=== PATIENT | female | born 1985 | race Caucasian/White ===

== ENCOUNTER 2017-07-08 05:46 | Emergency (ER) | payer OTHER ==
[2017-07-08 06:27] LABS: Bilirubin Negative (Negative); Blood, Urine Moderate (Negative); Glucose, Urine (Dipstick) Negative (Negative); Ketone, Urine Negative (Negative); Nitrite Negative (Negative); Protein, Urine (Dipstick) Negative (Neg-Trace); RBC/HPF 0-3 HPF (0-3); Squamous Epithelial 0-3 HPF (0-3); Urobilinogen 0.2 mg/dL (0.2-1.0); WBC/HPF 0-3 HPF (0-3)
[2017-07-08 06:28] LABS: Bacteria/HPF Rare-Few HPF (None Seen); Hyaline Casts/LPF NONE SEEN LPF (0-3 Hyaline)
[2017-07-08 06:34] LABS: Hematocrit 40.9 % (36.0-47.0); Red Blood Cell (RBC) Count 4.47 mill/uL (4.20-5.40); White Blood Cell (WBC) Count 6.3 thou/uL (4.8-10.8)
[2017-07-08 06:35] LABS: Mean Platelet Volume 7.6 fL (7.4-10.4)
[2017-07-08 07:00] LABS: Band 3 % (5-11); Neutrophil 45 % (42-75); Reactive Lymphocytes 4 % (0-10)
--- NOTE | 2017-07-08 10:21 | ULT ---
OB ULTRASOUND: Date: `07/08/17 HISTORY: Pelvic pain. Positive . FINDINGS: There is a fluid collection seen within the endometrial canal with evidence of a pole, most com patible with intrauterine gestation. [place]-rump length measures 2.4 cm, which would be consistent wit h gestational age of 9 weeks and 1 day. However, cardiac Doppler does not detect heart tones, a nd heart tones should be detected at this time. The gestational sac also appears large in size with respect to the size of the pole. No yolk sac is visualized. The uterus measures 9.3 cm x 6.3 cm x 7.9 cm. Right ovary is not visualized. The left ovary has a normal sonographic appearance and measures 3.1 c m x 1.8 cm x 2.8 cm. Doppler evaluation of the left ovary with spectral analysis and color flow evalu ation does demonstrate arterial flow. No free fluid is seen in the cul-de-sac. IMPRESSION: Evidence of intrauterine gestation, but no heart tones are detected suggesting demise. Th e size of the gestational sac also appears out of proportion to size of the pole. Above findings discussed with ordering physician in the emergency department on 07/08/17 at 0853 hour s. CODE CR. POS: [facility]
== END 2017-07-08 09:34 | disposition home or self-care (01) ==
LOC: SCSER 05:46
DX: O03.9 Complete or unspecified spontaneous abortion without complication (principal); O99.511 Diseases of the respiratory system complicating pregnancy, first trimester; Z3A.12 12 weeks gestation of pregnancy; Z79.899 Other long term (current) drug therapy
CPT/HCPCS: 76856; 81003; 81015; 84702; 85025; 86900; 86901

== ENCOUNTER 2017-07-09 07:15 | Day surgery (SDC) | payer OTHER ==
[2017-07-09 07:52] LABS: #Eosinphils 0.2 thou/uL (0.0-0.7); #Lymphocytes 1.9 thou/uL (1.20-3.40); #Monocytes 0.5 thou/uL (0.11-0.59); #Neutrophils 4.3 thou/uL (1.40-6.50); %Eosinophils 2.3 % (0.0-10.0); %Lymphocytes 27.8 % (21.0-51.0); %Monocytes 7.4 % (0.0-10.0); Hematocrit 38.7 % (36.0-47.0); Mean Platelet Volume 7.5 fL (7.4-10.4); Red Blood Cell (RBC) Count 4.07 mill/uL (4.20-5.40); White Blood Cell (WBC) Count 6.9 thou/uL (4.8-10.8)
--- NOTE | 2017-07-09 09:31 | HP ---
REASON FOR ADMISSION: Incomplete AB at 8 weeks gestation. HISTORY OF PRESENT ILLNESS: Ms. Valdes is a 32-year-old 2, para 1, approximately 8 weeks gest ation who is a patient of Dr. Beba Mason. She presented to the [place] [facility] on the with bleeding, was noted to have absent FHTs and a beta of 6500. She was given Cytotec per ACOG vasyl mmendations. She has had some bleeding overnight that has not stopped. She may have passed some tis juarez. She was seen in the emergency room this morning and was noted to have a near syncopal episode s econdary to her bleeding. 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 PAST MEDICAL HISTORY: Asthma. PAST SURGICAL HISTORY: None. ALLERGIES: Denies. MEDICATIONS: vitamins and albuterol inhaler. SOCIAL HISTORY: Denies tobacco, alcohol, or drug use. FAMILY HISTORY/REVIEW OF SYSTEMS: Noncontributory. PHYSICAL EXAMINATION: Somewhat pale white female. VITAL SIGNS: Pulse of 103, blood pressure of 100/60, temperature 98.6, respirations 18. HEENT: Within normal limits. LUNGS: Clear to auscultation bilaterally. HEART: Regular rhythm. ABDOMEN: Soft, nontender, no rebound or guarding. PELVIC: Vulva without lesions. Vagina, moderate blood noted, clot in the introitus. Speculum exam deferred. EXTREMITIES: Without clubbing, cyanosis or edema. LABORATORY STUDIES: Hematocrit is 38.7%, yesterday it was 40.9%, platelet count is within normal gregory its. White count is within normal limits. Beta hCG has decreased from 6500 to 3600. Ultrasound pedro wed an intrauterine gestation with a 2.4 cm pole yesterday with absence of FHTs. IMPRESSION: Incomplete with moderate to heavy vaginal bleeding, status post Cytotec for mis sed . PLAN: We will take the patient to the operating room and perform suction and sharp D&C.
[2017-07-09] MEDS ORDERED: Fentanyl 100 MCG/2 ML VIAL ONE (09:42)
[2017-07-09] MEDS ORDERED: CEFAZOLIN/Water 2 GM/20 ML SYRINGE ONE (09:51)
[2017-07-09] MEDS ORDERED: Midazolam HCl 2 mg/2 ml Vial ONE (09:52)
--- NOTE | 2017-07-09 10:37 | PDISCHARGE ---
Discharge - Disposition Disposition: HOME - Patient Instructions - Referrals and PCP Follow-Up Referrals and PCP Follow-Up: Beba Velasquez MD [Primary Care Provider] - 07/28/17 - Activity Instructions Activity:: Activity as Tolerated - Nourishment Instructions Nourishment:: No Restrictions - Therapy Instructions Therapies:: Not Applicable - Equipment/Supply Instructions Equipment/Supplies:: Not Applicable - IV Therapy Instructions IV Therapy:: Not Applicable
--- NOTE | 2017-07-09 15:09 | OP ---
DATE OF PROCEDURE: 07/09/2017 PREOPERATIVE DIAGNOSIS: Incomplete , 8 weeks. POSTOPERATIVE DIAGNOSIS: Incomplete , 8 weeks. PROCEDURE: Suction and sharp D&C SURGEON: Waylon Torres M.D. ANESTHESIA: General endotracheal, Abad Bradford M.D. ESTIMATED BLOOD LOSS: 50 mL intraoperatively. MEDICATIONS: Two grams Ancef preincision. DVT PROPHYLAXIS: SCDs. OPERATIVE FINDINGS: 1. Pre and post-sound 10 cm ovary. 2. Products of conception. 3. Hemostasis of the procedure and correct count. DISPOSITION: To the recovery room in good condition. DESCRIPTION OF OPERATIVE PROCEDURE: The patient was taken to the operating room where anesthesia was achieved without difficulty. She was prepped and draped in dorsal lithotomy and candy canes. Side- hinged speculum was placed in the vagina and cervix was identified and a large amount of clot was not ed in the vagina. This was removed. Upon visualization of the cervix, there was a large amount of t issue in the cervical os that was dilated up to almost 2 cm and this was grasped a ring forceps remov ed and sent with the rest of the pathologic specimen. The cervix was grabbed at 12 o'clock and sound ed to 10 cm, 9 mm curette, curved, max vacuum 40 mmHg was introduced in the uterine cavity and produc ts of conception was noted. With cessation of flow of products of conception, the suction curette wa s removed. Sharp curretage was carried out and then repeat suction curet revealed no further tissue and bleeding had ceased. Post-sound was 10 cm. Tenaculum removed. Side hand speculum removed. Pat ient awakened, extubated, and taken to recovery room in good condition. Rh, patient's blood type is O positive, so no RhoGAM is necessary. The patient will be discharged home from day stay unit with heather doran up by Dr. Velasquez in 2-4 weeks.
== END 2017-07-09 12:30 ==
LOC: ERS 07:15 → SDC/OP 09:27
PROVIDERS: ATTEND Obstetrics & Gynecology
PROC: 10D17ZZ Extraction of Products of Conception, Retained, Via Natural or Artificial Opening (ICD-10-PCS; principal; 2017-07-09)
DX: O03.4 Incomplete spontaneous abortion without complication (principal); J45.909 Unspecified asthma, uncomplicated; Z79.899 Other long term (current) drug therapy
CPT/HCPCS: 36415; 84702; 85025; 86900; 86901; 96360; J2250; J3010

== ENCOUNTER 2018-02-10 07:33 | Emergency (ER) | payer BC, OTHER ==
[2018-02-10 07:58] LABS: #Basophils 0.1 thou/uL (0.0-0.2); #Eosinphils 0.2 thou/uL (0.0-0.7); #Lymphocytes 1.4 thou/uL (1.20-3.40); #Monocytes 0.4 thou/uL (0.11-0.59); #Neutrophils 4.6 thou/uL (1.40-6.50); %Basophils 0.9 % (0.0-1.0); %Eosinophils 3.2 % (0.0-10.0); %Lymphocytes 21.2 % (21.0-51.0); %Monocytes 6.6 % (0.0-10.0); %Neutrophils 68.2 % (42.0-75.0); Hemoglobin 13.8 g/dL (12.0-16.0); Mean Corpuscular HGB CONC 33.7 g/dL (32.0-36.0); Mean Corpuscular Hemoglobin 31.7 pg (27.0-31.0); Mean Platelet Volume 8.1 fL (7.4-10.4); Platelet Count 173 thou/uL (130-400); RBC Distribution Width 11.1 % (11.5-14.5); Red Blood Cell (RBC) Count 4.36 mill/uL (4.20-5.40); White Blood Cell (WBC) Count 6.7 thou/uL (4.8-10.8)
[2018-02-10 08:11] LABS: ALT (SGPT) 9 U/L (8-55); AST (SGOT) 17 U/L (5-34); Albumin 4.6 g/dL (3.5-5.0); Alkaline Phosphatase 78 U/L (40-150); Anion Gap 9 mmol/L (10-20); BUN (Urea Nitrogen) 10 mg/dL (7.0-18.7); Bilirubin, Total 0.3 mg/dL (0.2-1.2); Calc. Creatinine Clearance 0 mL/min (70-130); Calcium 9.6 mg/dL (7.8-10.44); Carbon Dioxide 29 mmol/L (22-29); Chloride 104 mmol/L (98-107); Estimated GFR-MDRD 87; Globulin 3.5 g/dL (2.4-3.5); Glucose 104 mg/dL (70-105); Lipase 14 U/L (8-78); Protein, Total 8.1 g/dL (6.0-8.3); Sodium 138 mmol/L (136-145)
[2018-02-10 08:35] LABS: Bilirubin Negative (Negative); Blood, Urine Negative (Negative); Clarity CLEAR (Clear); Glucose, Urine (Dipstick) Negative (Negative); Leukocyte Negative (Negative); Nitrite Negative (Negative); Protein, Urine (Dipstick) Negative (Neg-Trace); Specific Gravity, Urine 1.009 (1.002-1.036); Urobilinogen 0.2 mg/dL (0.2-1.0); pH, Urine 7.5 (5.0-9.0)
[2018-02-10 08:47] LABS: Pregnancy Test - Urine (BHCG) Negative (Negative)
[2018-02-10 08:48] LABS: Pregu Control Background? CLEAR/WHITE (CLR/WHITE); Pregu Control Bar Appear? YES (CONTROL BAR)
[2018-02-10 08:49] LABS: Specific Gravity 1.009 (1.002-1.036)
[2018-02-10] MEDS ORDERED: ISOVUE-370 76%-LOCM 1 ML ONE (09:40)
[2018-02-10] MEDS ORDERED: Iopamidol 370 76% 50 ML VIAL FS ONE (09:40)
--- NOTE | 2018-02-10 10:50 | CT ---
CT OF THE ABDOMEN AND PELVIS WITH CONTRAST: Date: 02/10/18 COMPARISON: None. HISTORY: Abdominal pain after a fall that occurred this morning while walking to the bathroom. TECHNIQUE: Multiple contiguous axial images were obtained in a CT of the abdomen and pelvis with contrast. PO co ntrast was administered. Coronal reformats were performed. FINDINGS: The liver, gallbladder, kidneys, adrenal glands, spleen, and pancreas are unremarkable. No free air o r stranding changes are seen in the abdomen or pelvis. A small amount of free fluid in the pelvis may be physiologic. The reproductive organs are unremarkable. A dominant follicle is seen in the right o vary measuring 2.3 cm in greatest dimension. The large and small bowel are unremarkable. The appendix is normal. No abdominal or pelvic lymphadeno christian are seen. The osseous structures, visualized inferior thorax, and abdominal wall soft tissues are unremarkable. IMPRESSION: No evidence of acute intra-abdominal/pelvic abnormality. POS: NOEL
== END 2018-02-10 11:28 | disposition home or self-care (01) ==
LOC: ERS 07:33
DX: N83.201 Unspecified ovarian cyst, right side (principal); J45.909 Unspecified asthma, uncomplicated; Z79.899 Other long term (current) drug therapy
CPT/HCPCS: 36415; 74177; 80053; 81003; 81025; 83690; 85025; 96360

== ENCOUNTER 2018-07-04 10:23 | Day surgery (SDC) | payer BC ==
[2018-07-01 14:18] VITALS: BMI 28.2
--- NOTE | 2018-07-04 10:11 | HP ---
DATE OF PROCEDURE: 07/04/2018 HISTORY OF PRESENT ILLNESS: Ms. Valdes is a 33-year-old white female A1, who has a confirmation of a 6-7 week embryonic demise. She had initial ultrasound evaluation on 06/28/2018 for new OB visi t which showed her to be size less than dates with a crown rump length of 0.33 cm. There was no card iac activity noted. She had subsequent follow up ultrasound today showing again no cardiac activity and no growth, confirming a missed . She has no current vaginal bleeding. She was aware of the possibility of early loss and she has had a previous miscarriage approximately a year ago where s he received Cytotec and then required a post-Cytotec D&C and she prefers a suction D&C due to this hi story. PAST MEDICAL HISTORY: Asthma. PAST SURGICAL HISTORY: Suction D&C. FAMILY HISTORY: Myocardial infarction in her father and multiple myeloma in her father. SOCIAL HISTORY: She is a nonsmoker. No excessive alcohol use. PERTINENT LABORATORY: Her blood type is O positive. PHYSICAL EXAMINATION: VITAL SIGNS: Her weight 179 pounds, blood pressure 130/80, heart rate 80 and regular. HEENT: Within normal limits. CHEST: Clear to auscultation. HEART: Regular rate and rhythm. S1, S2 heart sounds, no murmurs, rubs or gallops. ABDOMEN: Soft, nontender, nondistended with no palpable masses. PELVIC: Vulva and vagina had no lesions. Cervix had no lesions. Cervical os is closed. Uterus is 6-8 weeks size. Adnexa nontender with no masses. ASSESSMENT: A 33-year-old A1 with 6-7 week early loss, Rh positive blood type. PLAN: Suction D&C today.
[2018-07-04] MEDS ORDERED: CEFAZOLIN 2 GM/50 ML BAG ONE (11:36)
[2018-07-04] MEDS ORDERED: Fentanyl 100 MCG/2 ML VIAL ONE (12:16)
[2018-07-04] MEDS ORDERED: Midazolam HCl 2 mg/2 ml Vial ONE (12:16)
[2018-07-04 13:45] LABS: #Eosinphils 0.1 thou/uL (0.0-0.7); #Lymphocytes 2.3 thou/uL (1.20-3.40); #Monocytes 0.5 thou/uL (0.11-0.59); #Neutrophils 4.7 thou/uL (1.40-6.50); %Basophils 0.5 % (0.0-1.0); %Eosinophils 1.5 % (0.0-10.0); %Lymphocytes 29.8 % (21.0-51.0); %Monocytes 6.7 % (0.0-10.0); %Neutrophils 61.6 % (42.0-75.0); Hemoglobin 12.9 g/dL (12.0-16.0); Mean Corpuscular HGB CONC 32.7 g/dL (32.0-36.0); Mean Corpuscular Hemoglobin 30.8 pg (27.0-31.0); Mean Corpuscular Volume 94.3 fL (78.0-98.0); Mean Platelet Volume 8.3 fL (7.4-10.4); Platelet Count 207 thou/uL (130-400); RBC Distribution Width 11.1 % (11.5-14.5); Red Blood Cell (RBC) Count 4.19 mill/uL (4.20-5.40); White Blood Cell (WBC) Count 7.6 thou/uL (4.8-10.8)
--- NOTE | 2018-07-04 13:50 | OP ---
DATE OF PROCEDURE: 07/04/2018 PREOPERATIVE DIAGNOSES: 1. A 33-year-old white female, A1 with 6-7 weeks embryonic demise. 2. Blood type O positive. POSTOPERATIVE DIAGNOSES: 1. A 33-year-old white female, A1 with 6-7 weeks embryonic demise. 2. Blood type O positive. PROCEDURE PERFORMED: Suction D&C. SURGEON: Beba Velasquez M.D. ANESTHESIA: General. ESTIMATED BLOOD LOSS: 100 mL. COMPLICATIONS: None. COUNTS: Correct x2. 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 PATHOLOGY: Products of conception. FINDINGS: 1. Uterus was approximately 8 weeks size with the sound to 10 cm. 2. Products removed consistent with products of conception. COMPLICATIONS: None. DISPOSITION: Recovery room and then plan for discharge home from day stay. DESCRIPTION OF OPERATIVE PROCEDURE: The patient previously received informed consent in regards to angela moore. She was taken back to the operating room where she received a general anesthetic agent witho ut complications. She was placed in dorsal lithotomy position with use of Christian stirrups and prepped and draped in usual sterile fashion. In and out catheterization of bladder was performed. At this time, an exam under anesthesia was performed noting the uterus to be 8 weeks size, anteverted in posi tion. The anterior lip of cervix was then grasped with a single-tooth tenaculum. The uterus sounded to 10 cm. Serial dilatation of the cervix was carried out to a size 18 Hanks dilator. This allowed for an 8 mm curet to fit easily through the cervical os into the endometrial cavity. The endometria l cavity was then suctioned with the D&C suction device at approximately 15-16 mm of pressure. Once felt the majority of the contents had been evacuated, sharp curettage again was then scraped through the contents of the uterine cavity, removing the remainder of the products of conception. The cavity again was resuctioned until no residual tissue was noted to be removed. There was no active bleedin g noted from the cervical os supracervically. Tenaculum was removed. Pressure was applied to the te naculum sites with a sponge stick. Hemostasis was achieved. The patient was then awakened from anes thesia and transferred to the recovery room in stable condition.
[2018-07-04] MEDS ORDERED: Ondansetron PF 4 MG/2 ML Vial ONE (13:56)
[2018-07-04] MEDS ORDERED: PROPOFOL 200 MG/20 ML VIAL ONE (13:56)
[2018-07-04] MEDS ORDERED: Lidocaine 1% PF 5 ML VIAL ONE (13:56)
[2018-07-04] MEDS ORDERED: Dexamethasone 20 MG/5 ML VIAL ONE (13:56)
== END 2018-07-04 15:09 | disposition home or self-care (01) ==
LOC: SDC 10:23
PROVIDERS: ATTEND Obstetrics & Gynecology
PROC: 10D17Z9 Manual Extraction of Products of Conception, Retained, Via Natural or Artificial Opening (ICD-10-PCS; principal; 2018-07-04)
DX: O02.1 Missed abortion (principal); J45.909 Unspecified asthma, uncomplicated; Z79.899 Other long term (current) drug therapy
CPT/HCPCS: 85025; 86850; 86900; 86901; 88305; J1100; J2001; J2250; J2405; J2704; J3010

== ENCOUNTER 2018-09-26 18:32 | Emergency (ER) | payer BC ==
--- NOTE | 2018-09-26 19:38 | RAD ---
PORTABLE CHEST ONE VIEW: HISTORY: Chest pain. FINDINGS: heart size and mediastinum are within normal limits. Lungs appear clear of infiltrates. Scoliotic c hange of the spine is noted. IMPRESSION: No active intrathoracic disease. POS: [facility]
[2018-09-26 19:41] LABS: #Eosinphils 0.3 thou/uL (0.0-0.7); #Lymphocytes 2.4 thou/uL (1.20-3.40); #Monocytes 0.5 thou/uL (0.11-0.59); #Neutrophils 3.3 thou/uL (1.40-6.50); %Basophils 0.4 % (0.0-1.0); %Eosinophils 5.2 % (0.0-10.0); %Lymphocytes 36.4 % (21.0-51.0); %Monocytes 7.3 % (0.0-10.0); %Neutrophils 50.6 % (42.0-75.0); Hemoglobin 12.6 g/dL (12.0-16.0); Mean Corpuscular HGB CONC 33.3 g/dL (32.0-36.0); Mean Corpuscular Hemoglobin 32.2 pg (27.0-31.0); Mean Corpuscular Volume 96.6 fL (78.0-98.0); Mean Platelet Volume 7.4 fL (7.4-10.4); Platelet Count 188 thou/uL (130-400); RBC Distribution Width 10.9 % (11.5-14.5); Red Blood Cell (RBC) Count 3.91 mill/uL (4.20-5.40); White Blood Cell (WBC) Count 6.6 thou/uL (4.8-10.8)
[2018-09-26 20:25] LABS: ALT (SGPT) 12 U/L (8-55); AST (SGOT) 19 U/L (5-34); Albumin 4.2 g/dL (3.5-5.0); Alkaline Phosphatase 61 U/L (40-150); Anion Gap 10 mmol/L (10-20); BUN (Urea Nitrogen) 13 mg/dL (7.0-18.7); Bilirubin, Total 0.4 mg/dL (0.2-1.2); CK (CPK) 77 U/L (29-168); Calc. Creatinine Clearance 0 mL/min (70-130); Calcium 9.3 mg/dL (7.8-10.44); Carbon Dioxide 25 mmol/L (22-29); Chloride 106 mmol/L (98-107); Estimated GFR-MDRD 83; Globulin 2.8 g/dL (2.4-3.5); Glucose 89 mg/dL (70-105); Potassium 4.3 mmol/L (3.5-5.1); Sodium 137 mmol/L (136-145)
[2018-09-26 20:36] LABS: Lipase 18 U/L (8-78)
== END 2018-09-26 21:24 | disposition home or self-care (01) ==
LOC: ERS 18:32
DX: F41.9 Anxiety disorder, unspecified (principal); J45.909 Unspecified asthma, uncomplicated
CPT/HCPCS: 36415; 71045; 80053; 82550; 83690; 84484; 85025; 93005

== ENCOUNTER 2018-10-06 08:05 | Emergency (ER) | payer BC ==
[2018-10-06] MEDS ORDERED: Mag-Al Plus 1200 MG/1200 MG/120 MG/30 ML UDCUP ONE (08:36)
[2018-10-06] MEDS ORDERED: Famotidine 20 MG TAB ONE (08:36)
[2018-10-06] MEDS ORDERED: Lidocaine Viscous Sol 2% 15 ml UD Cup ONE (08:36)
[2018-10-06 08:46] LABS: Bilirubin Negative (Negative); Blood, Urine Trace (Negative); Clarity Clear (Clear); Glucose, Urine (Dipstick) Negative (Negative); Leukocyte Negative (Negative); Nitrite Negative (Negative); Protein, Urine (Dipstick) Negative (Neg-Trace); Specific Gravity, Urine 1.015 (1.005-1.030); Urobilinogen 0.2 mg/dL (0.2-1.0)
[2018-10-06 08:48] LABS: Bacteria/HPF Rare-Few HPF (None Seen); RBC/HPF 0-3 HPF (0-3); WBC/HPF 0-3 HPF (0-3)
[2018-10-06 08:49] LABS: Pregnancy Test - Urine (BHCG) Negative (Negative); Pregu Control Background? CLEAR/WHITE (CLR/WHITE); Pregu Control Bar Appear? YES (CONTROL BAR); Specific Gravity 1.015 (1.002-1.036)
[2018-10-06 08:59] LABS: #Monocytes 0.5 thou/uL (0.11-0.59); #Neutrophils 3.4 thou/uL (1.40-6.50); %Basophils 0.6 % (0.0-1.0); %Eosinophils 0.7 % (0.0-10.0); %Lymphocytes 20.3 % (21.0-51.0); %Monocytes 10.7 % (0.0-10.0); %Neutrophils 67.8 % (42.0-75.0); Mean Corpuscular HGB CONC 34.6 g/dL (32.0-36.0); Mean Corpuscular Hemoglobin 31.4 pg (27.0-31.0); Mean Corpuscular Volume 90.8 fL (78.0-98.0); Mean Platelet Volume 8.5 fL (7.4-10.4); Platelet Count 164 thou/uL (130-400); RBC Distribution Width 11.2 % (11.5-14.5); Red Blood Cell (RBC) Count 4.14 mill/uL (4.20-5.40)
[2018-10-06 09:03] LABS: ALT (SGPT) 10 U/L (8-55); AST (SGOT) 14 U/L (5-34); Alkaline Phosphatase 59 U/L (40-150); Anion Gap 11 mmol/L (10-20); BUN (Urea Nitrogen) 10 mg/dL (7.0-18.7); Bilirubin, Total 0.3 mg/dL (0.2-1.2); Calc. Creatinine Clearance 0 mL/min (70-130); Calcium 9.1 mg/dL (7.8-10.44); Carbon Dioxide 25 mmol/L (22-29); Chloride 107 mmol/L (98-107); Estimated GFR-MDRD Greater than 90; Glucose 115 mg/dL (70-105); Lipase 12 U/L (8-78); Potassium 3.7 mmol/L (3.5-5.1); Sodium 139 mmol/L (136-145)
--- NOTE | 2018-10-06 09:16 | RAD ---
TWO VIEW CHEST: Comparison: 09-26-18 Indication: Chest pain FINDINGS: Lungs are clear. No effusion or pneumothorax. Cardiac silhouette is stable. IMPRESSION: No focal consolidation. POS: H
== END 2018-10-06 09:11 | disposition home or self-care (01) ==
LOC: SCSER 08:05
DX: K29.00 Acute gastritis without bleeding (principal); J45.909 Unspecified asthma, uncomplicated
CPT/HCPCS: 36415; 71046; 80053; 81003; 81015; 81025; 83690; 84484; 85025; 93005

== ENCOUNTER 2019-11-21 23:04 | Inpatient (IN) | payer BC ==
[~2019-11-21 23:04] MED LIST: Bupivacaine/Epinephrine 0.25% 30 ML VIAL ONE
[2019-11-21 23:32] VITALS: BMI 34.7
[2019-11-22] MEDS ORDERED: Lidocaine 1% (PF) 30 ML VIAL SC PRN (00:04)
[2019-11-22] MEDS ORDERED: NS / Oxytocin 40 units/1000ml 1,000 ML IV PRN (00:04)
[2019-11-22] MEDS ORDERED: Promethazine HCl 25 MG/ML VIAL IM PRN ×2 (00:04→03:36)
[2019-11-22] MEDS ORDERED: HYDROcodone/Acetaminophen 5/325 mg Tablet PO PRN ×2 (00:04)
[2019-11-22] MEDS ORDERED: Butorphanol Tartrate 1 MG/ML VIAL SLOW IVP PRN (00:04)
[2019-11-22] MEDS ORDERED: Ibuprofen 800 MG TAB PO PRN (00:04)
[2019-11-22] MEDS ORDERED: Misoprostol 200 MCG TAB PR PRN (00:04)
[2019-11-22] MEDS ORDERED: Ondansetron PF 4 MG/2 ML Vial IVP PRN ×2 (00:04→03:36)
[2019-11-22] MEDS ORDERED: Acetaminophen 500 MG TAB PO PRN (00:04)
[2019-11-22] MEDS ORDERED: hydrALAZINE 20 MG/ML VIAL SLOW IVP PRN ×2 (00:04→07:02)
[2019-11-22] MEDS ORDERED: Meperidine HCl/PF 25 MG/ML VIAL IM/IV PRN (00:04)
--- NOTE | 2019-11-22 00:09 | PDOC.LDHP ---
Labor and Delivery H&P Chief complaint: loss of fluid HPI: 34 yo WF c/o ROM at 2230, now with occ. UCs. Scheduled for induction in the AM. Current gestational age (weeks): 39 Due date: 11/27/19 Dating criteria: last menstrual period Grav: 4 Para: 1 OB History Details: x1 at term SAB x2 w/D&Cs Current complications: other (h/o elevated AFP) Abnormal US findings: No Past Medical History: h/o asthma Current medications: pre- vitamins Previous surgical history: dilation and curettage (x2) Allergies/Adverse Reactions: Allergies Allergy/AdvReac Type Severity Reaction Status Date / Time No Known Allergies Allergy Verified 11/21/19 23:27 Social history: none - Physical Exam Vital signs reviewed and normal: yes General: resting Heart: RRR Lungs: CTAB Abdomen: gravid Extremeties: trace edema FHT: category 1 [place] contractions every: irregular - Vaginal Exam cm dilated: 3 Effacement: 50% Station: -1 - OB Labs GBS: positive - Assessment L&D Assessment: term rupture in membranes - Plan Plan: admit to L&D, labor augmentation if indicated, GBS antibiotic prophylaxis , anesthesia consult for pain management, other ([facility] confirms vtx, Dr. Velasquez aware of admit)
[2019-11-22] MEDS ORDERED: Penicillin G Potassium 5 MILL.UNITS in Sodium Chloride 0.9% 100 ML IVPB SCH (00:15)
[2019-11-22] MEDS ORDERED: NS w/ Oxytocin 10 units 500 ML IV SCH (00:15)
[2019-11-22] MEDS ORDERED: Lactated Ringer's 1,000 ML IV SCH (00:15)
[2019-11-22 00:29] LABS: Hemoglobin 11.9 g/dL (12.0-16.0); Mean Corpuscular HGB CONC 33.9 g/dL (32.0-36.0); Mean Corpuscular Hemoglobin 31.5 pg (27.0-31.0); Mean Corpuscular Volume 92.9 fL (78.0-98.0); Mean Platelet Volume 8.8 fL (7.4-10.4); Platelet Count 207 thou/uL (130-400); RBC Distribution Width 11.5 % (11.5-14.5); Red Blood Cell (RBC) Count 3.77 mill/uL (4.20-5.40); White Blood Cell (WBC) Count 8.8 thou/uL (4.8-10.8)
[2019-11-22] MEDS: Lactated Ringer's 1,000 ML IV SCH ×2 (00:30→04:59)
[2019-11-22 01:15] LABS: HBSAg Index 0.22 S/CO (0-0.99); Hep B Surf Ag Non-Reactive S/CO (NonReactive)
[2019-11-22] MEDS ORDERED: Fentanyl 4 mcg/Bup 0.1% Cadd 100 ML ONE (02:44)
[2019-11-22] MEDS ORDERED: EPHEDRINE 25 MG/5 ML SYRINGE SLOW IVP PRN (03:36)
[2019-11-22] MEDS ORDERED: Lactated Ringer's 500 ML IV PRN (03:36)
[2019-11-22] MEDS ORDERED: Naloxone HCl 0.4 mg/ml Vial IVP PRN ×2 (03:36)
[2019-11-22] MEDS ORDERED: Acetaminophen 325 MG TAB PO PRN (03:36)
[2019-11-22] MEDS ORDERED: diphenhydrAMINE 50 MG/ML VIAL IVP PRN (03:36)
[2019-11-22] MEDS ORDERED: Communication Order-Pharmacy FS SCH (03:45)
[2019-11-22] MEDS ORDERED: Fentanyl 4 mcg/Bupivacaine 0.1% Cassette 100 ML EPIDURAL SCH (03:45)
[2019-11-22 03:46] LABS: Syphilis Antibody Nonreactive (Nonreactive); Syphilis Antibody Index 0.13 S/CO (<1.00 Non-Reactive)
[2019-11-22] MEDS: Penicillin G 2.5 MILL.units 2.5 MILL.UNITS in Premix Bag 1 BAG IVPB SCH ×2 (04:57→17:12)
--- NOTE | 2019-11-22 07:01 | PDOC.OPDEL ---
OB Operative/Delivery Note Delivery Dr/Surgeon: Eva Pre-Delivery Diagnosis: active labor Procedure/Post Delivery Dx: spontaneous vaginal delivery Weeks gestation: 39 Anesthesia: epidural - Findings A Sex: male - 1 min: 9 - 5 min: 9 - Additional Findings/Plan Placenta delivered: spontaneous Repaired Obstetrical Laceration: 2nd degree Estimated blood loss: 200ml qbl
[2019-11-22] MEDS ORDERED: Preparation H Ointment 28 GM TUBE PR PRN (07:02)
[2019-11-22] MEDS ORDERED: Bisacodyl 10 MG SUPP PR PRN (07:02)
[2019-11-22] MEDS ORDERED: Adacel (T-DAP) 0.5 ML SYRINGE IM ONE (07:02)
[2019-11-22] MEDS ORDERED: Lanolin Ointment 7 GM TUBE TOP PRN (07:02)
[2019-11-22] MEDS ORDERED: Milk Of Magnesia 30 ML UDCUP PO PRN (07:02)
[2019-11-22] MEDS ORDERED: traMADol HCl 50 MG TAB PO PRN (07:02)
[2019-11-22] MEDS ORDERED: NS / Oxytocin 40 units/1000ml 1,000 ML IV SCH (07:15)
[2019-11-22] MEDS: Docusate Calcium (SURFAK) 240 MG CAP PO SCH ×2 (10:56→23:01)
[2019-11-22] MEDS: Ferrous Sulfate 325 MG TAB PO SCH ×2 (10:57→17:12)
[2019-11-22] MEDS: Prenatal Vitamin 1 TAB PO SCH (10:57)
[2019-11-22] MEDS: Ibuprofen 800 MG TAB PO SCH ×2 (13:52→23:01)
[2019-11-23] MEDS: Ibuprofen 800 MG TAB PO SCH ×3 (05:58→21:21)
--- NOTE | 2019-11-23 08:33 | PDOC.PP ---
Post Progress Note Post Day #: 1 Subjective: Doing well. Baby +abdi-has been receiveing UV therapy. Labs checked again in 12 hours. Vital Signs (12 hours) Temp Pulse Resp BP Pulse Ox 11/23/19 08:21 98.3 F 97 20 127/75 96 11/23/19 05:57 98.0 F 54 L 12 125/76 96 11/23/19 00:50 97.8 F 54 L 12 110/68 95 Weight Weight 215 lb Result Diagrams: 11/22/19 00:17 Additional Labs: Post Labs Blood Type O POSITIVE 11/22/19 00:17 Hep Bs Antigen Non-Reactive S/CO (NonReactive) 11/22/19 00:17 - Assessment/Plan Post day 1 from . Patient doing well. discharge dependent on baby and follow up bilirubin. Routine care.
[2019-11-23] MEDS: Docusate Calcium (SURFAK) 240 MG CAP PO SCH ×2 (10:45→21:21)
[2019-11-23] MEDS: Prenatal Vitamin 1 TAB PO SCH (10:45)
[2019-11-23] MEDS: Ferrous Sulfate 325 MG TAB PO SCH ×2 (10:46→16:43)
[2019-11-24] MEDS: Ibuprofen 800 MG TAB PO SCH ×2 (06:04→13:37)
[2019-11-24 08:00] VITALS: BP 119/78; TEMP 98.4
[2019-11-24] MEDS: Ferrous Sulfate 325 MG TAB PO SCH (08:08)
[2019-11-24] MEDS: Docusate Calcium (SURFAK) 240 MG CAP PO SCH (08:13)
[2019-11-24] MEDS: Prenatal Vitamin 1 TAB PO SCH (08:13)
--- NOTE | 2019-11-24 08:44 | PDOC.PP ---
Post Progress Note Post Day #: 2 PO intake tolerated: yes Flatus: yes Ambulation: yes Vital Signs (12 hours) Temp Pulse Resp BP Pulse Ox 11/24/19 07:59 98.4 F 82 20 119/78 97 Weight Weight 215 lb Result Diagrams: 11/22/19 00:17 Additional Labs: Post Labs Blood Type O POSITIVE 11/22/19 00:17 Hep Bs Antigen Non-Reactive S/CO (NonReactive) 11/22/19 00:17 - Assessment/Plan Post day 2 -doing well. D/c home or bed and breakfast if baby has to remain on uv lights.
== END 2019-11-24 16:30 | disposition home or self-care (01) | DRG 807 ==
LOC: L&D/OP 23:04 → L&D 11-22 → 3SW 11-22 16:52
PROVIDERS: ADMIT Obstetrics & Gynecology; ATTEND Obstetrics & Gynecology
PROC: 10E0XZZ Delivery of Products of Conception, External Approach (ICD-10-PCS; principal; 2019-11-22)
PROC: 0KQM0ZZ Repair Perineum Muscle, Open Approach (ICD-10-PCS; 2019-11-22)
DX: O99.824 Streptococcus B carrier state complicating childbirth (principal); Z37.0 Single live birth; Z3A.39 39 weeks gestation of pregnancy; O70.1 Second degree perineal laceration during delivery
CPT/HCPCS: 36415; 51702; 85027; 86780; 86850; 86900; 86901; 87340; 99285; J2540; J2590; J3490